=== PATIENT | male | born 1970 | race Caucasian/White ===

== ENCOUNTER 2022-12-24 21:37 | Emergency (ER) | payer MEDICAID ==
[2022-12-24] MEDS ORDERED: HYDROmorphone 0.5 MG/0.5 ML Syringe IVPUSH ONE (21:58)
[2022-12-24] MEDS ORDERED: Sodium Chloride 0.9% 10 ML Syringe FLUSH PRN (21:58)
[2022-12-24] MEDS ORDERED: Ondansetron 4 MG/2 ML SDV IVPUSH ONE (21:58)
[2022-12-24 22:30] LABS: ESTIMATED GFR 90 mL/min (>60)
[2022-12-24 22:32] LABS: CORONAVIRUS COVID-19 NAA NEGATIVE (NEGATIVE)
[2022-12-24] MEDS ORDERED: Sodium Chloride 0.9% 50 ML IV SCH (22:45)
[2022-12-24] MEDS ORDERED: Iopamidol 612 MG/ML 100 ML Bottle IV SCH (22:45)
[2022-12-25 00:08] VITALS: BP 110/70; PULSE 83
== END 2022-12-25 00:05 | disposition home or self-care (01) ==
LOC: JP.ED 21:37
DX: A08.4 Viral intestinal infection, unspecified (principal); J45.909 Unspecified asthma, uncomplicated; Z88.8 Allergy status to other drugs, medicaments and biological substances; Z86.16 Personal history of COVID-19; Z87.891 Personal history of nicotine dependence; Z20.822 Contact with and (suspected) exposure to COVID-19
CPT/HCPCS: 0241U; 36415; 71046; 74177; 80053; 83605; 83690; 85025; 96374; 96375; 99283; 99284; J1170; J2405; J3490; Q9967

== ENCOUNTER 2024-03-19 15:22 | Emergency (ER) | payer MEDICAID ==
[2024-03-19 17:02] LABS: BASOPHILS ABSOLUTE AUTO 0.03 K/uL (0.00-0.10); BASOPHILS PERCENT AUTO 0.4 % (0.1-1.3); EOSINOPHILS ABSOLUTE AUTO 0.06 K/uL (0.00-0.40); EOSINOPHILS PERCENT AUTO 0.9 % (0.0-5.4); HEMATOCRIT 45.1 % (38.4-49.7); HEMOGLOBIN 15.7 g/dL (12.9-16.9); IMMATURE GRAN ABSOLUTE AUTO 0.03 K/uL (0.00-0.23); IMMATURE GRAN PERCENT AUTO 0.4 % (0.0-0.7); LYMPHOCYTES PERCENT AUTO 34.1 % (11.4-47.7); MEAN CORPUSCULAR HEMOGLOBIN 29.2 pg (31.6-35.5); MEAN CORPUSCULAR HGB CONC 34.8 g/dL (31.6-35.5); MEAN CORPUSCULAR VOLUME 83.8 fL (81.4-99.0); MONOCYTES ABSOLUTE AUTO 0.61 K/uL (0.20-0.90); MONOCYTES PERCENT AUTO 9.1 % (3.3-12.6); NEUTROPHILS ABSOLUTE AUTO 3.71 K/uL (1.0-7.6); NEUTROPHILS PERCENT AUTO 55.1 % (40.0-78.1); PLATELET COUNT,PLT 294 K/uL (130-375); RED BLOOD CELL COUNT 5.38 M/uL (4.14-5.76); WHITE BLOOD CELL COUNT,WBC 6.7 K/uL (3.2-11.0)
[2024-03-19 17:16] VITALS: BP 136/89; PULSE 86
[2024-03-19 17:29] LABS: A/G RATIO 0.9 (1.2-2.2); ALANINE AMINOTRANSFERASE,ALT 36 U/L (12-78); ALBUMIN 3.5 g/dL (3.4-5.0); ALKALINE PHOSPHATASE 71 U/L (46-116); ASPARTATE AMNIOTRANSFERASE,AST 21 U/L (15-37); BILIRUBIN TOTAL 0.2 mg/dL (0.2-1.0); BLOOD UREA NITROGEN,BUN 18 mg/dL (7-18); CALCIUM 9.2 mg/dL (8.5-10.1); CARBON DIOXIDE,CO2 24 mmol/L (21-32); CHLORIDE,CL 102 mmol/L (100-108); CREATININE 0.9 mg/dL (0.8-1.3); EST CRCL DRUG DOSING (CG) 107.82 mL/min; ESTIMATED GFR 101 mL/min (>60); GLUCOSE RANDOM 105 mg/dL (74-106); PROTEIN TOTAL,TP 7.6 g/dL (6.4-8.2); SODIUM,NA 135 mmol/L (140-148)
[2024-03-19 17:36] LABS: TROPONIN I HIGH SENSITIVITY < 4.0 pg/mL (<=60.3)
== END 2024-03-19 18:44 | disposition home or self-care (01) ==
LOC: JP.ED 15:22
DX: R07.89 Other chest pain (principal); J45.909 Unspecified asthma, uncomplicated; Z88.8 Allergy status to other drugs, medicaments and biological substances; Z79.51 Long term (current) use of inhaled steroids; Z79.899 Other long term (current) drug therapy; Z86.16 Personal history of COVID-19
CPT/HCPCS: 36415; 80053; 84484; 85025; 93005; 93010; 99283; 99285

== ENCOUNTER 2024-04-30 06:39 | Day surgery (SDC) | payer MEDICAID ==
[2024-04-30] MEDS: Lactated Ringers 1,000 ML IV SCH (07:08)
[2024-04-30] MEDS ORDERED: Midazolam 1 MG/ML 2 ML SDV ONE (07:23)
[2024-04-30] MEDS ORDERED: fentaNYL 50 MCG/ML SDV ONE (07:23)
[2024-04-30] MEDS ORDERED: Propofol 200 MG/20 ML SDV ONE (07:23)
[2024-04-30 08:32] VITALS: BP 143/90; PULSE 74
== END 2024-04-30 08:52 | disposition home or self-care (01) ==
LOC: JP.SDS 06:39
PROVIDERS: ATTEND Family Medicine
DX: Z12.11 Encounter for screening for malignant neoplasm of colon (principal); K63.5 Polyp of colon; J45.909 Unspecified asthma, uncomplicated; K21.9 Gastro-esophageal reflux disease without esophagitis
CPT/HCPCS: 00811; 45380; 88305; J2250; J2704; J3010; J7120

== ENCOUNTER 2024-12-07 12:59 | Emergency (ER) | payer OTHER ==
[2024-12-07 13:56] LABS: BASOPHILS ABSOLUTE AUTO 0.03 K/uL (0.00-0.10); BASOPHILS PERCENT AUTO 0.5 % (0.1-1.3); EOSINOPHILS ABSOLUTE AUTO 0.03 K/uL (0.00-0.40); EOSINOPHILS PERCENT AUTO 0.5 % (0.0-5.4); HEMATOCRIT 45.4 % (38.4-49.7); HEMOGLOBIN 15.2 g/dL (12.9-16.9); IMMATURE GRAN ABSOLUTE AUTO 0.02 K/uL (0.00-0.23); IMMATURE GRAN PERCENT AUTO 0.3 % (0.0-0.7); LYMPHOCYTES ABSOLUTE AUTO 2.08 K/uL (0.8-3.3); LYMPHOCYTES PERCENT AUTO 31.5 % (11.4-47.7); MEAN CORPUSCULAR HEMOGLOBIN 29.1 pg (31.6-35.5); MEAN CORPUSCULAR HGB CONC 33.5 g/dL (31.6-35.5); MEAN CORPUSCULAR VOLUME 86.8 fL (81.4-99.0); MONOCYTES ABSOLUTE AUTO 1.02 K/uL (0.20-0.90); MONOCYTES PERCENT AUTO 15.5 % (3.3-12.6); NEUTROPHILS ABSOLUTE AUTO 3.42 K/uL (1.0-7.6); NEUTROPHILS PERCENT AUTO 51.7 % (40.0-78.1); PLATELET COUNT,PLT 303 K/uL (130-375); RED BLOOD CELL COUNT 5.23 M/uL (4.14-5.76); WHITE BLOOD CELL COUNT,WBC 6.6 K/uL (3.2-11.0)
[2024-12-07 14:17] LABS: ALANINE AMINOTRANSFERASE,ALT 38 U/L (12-78); ALBUMIN 3.7 g/dL (3.4-5.0); ALKALINE PHOSPHATASE 83 U/L (46-116); ANION GAP 13.3 mmol/L (5.0-14.0); ASPARTATE AMNIOTRANSFERASE,AST 18 U/L (15-37); BILIRUBIN TOTAL 0.4 mg/dL (0.2-1.0); BLOOD UREA NITROGEN,BUN 15 mg/dL (7-18); CALCIUM 9.4 mg/dL (8.5-10.1); CARBON DIOXIDE,CO2 26 mmol/L (21-32); CHLORIDE,CL 103 mmol/L (100-108); CREATININE 0.9 mg/dL (0.8-1.3); EST CRCL DRUG DOSING (CG) 101.79 mL/min; ESTIMATED GFR 101 mL/min (>60); GLUCOSE RANDOM 110 mg/dL (74-106); POTASSIUM,K 4.3 mmol/L (3.6-5.2); PROTEIN TOTAL,TP 7.4 g/dL (6.4-8.2); SODIUM,NA 138 mmol/L (140-148)
[2024-12-07] MEDS: Sodium Chloride 0.9% 1,000 ML IV ONE (14:24)
[2024-12-07] MEDS: Iopamidol 612 MG/ML 100 ML Bottle IV PRN (14:55)
[2024-12-07] MEDS: Sodium Chloride 0.9% 80 ML IV SCH (14:55)
[2024-12-07 15:26] VITALS: BP 124/82; PULSE 72
== END 2024-12-07 16:10 | disposition home or self-care (01) ==
LOC: JP.ED 12:59
DX: R19.7 Diarrhea, unspecified (principal); R10.10 Upper abdominal pain, unspecified; J45.909 Unspecified asthma, uncomplicated; Z87.891 Personal history of nicotine dependence; Z88.8 Allergy status to other drugs, medicaments and biological substances; Z79.51 Long term (current) use of inhaled steroids; Z79.899 Other long term (current) drug therapy
CPT/HCPCS: 36415; 74177; 80053; 83690; 85025; 96360; 99284; Q9967; J7030

== ENCOUNTER 2024-12-14 07:22 | Day surgery (SDC) | payer OTHER ==
[2024-12-14] MEDS ORDERED: Midazolam 1 MG/ML 2 ML SDV ONE (08:07)
[2024-12-14] MEDS ORDERED: Propofol 200 MG/20 ML SDV ONE ×2 (08:07→09:00)
[2024-12-14] MEDS ORDERED: fentaNYL 100 MCG/2 ML SDV ONE (08:07)
[2024-12-14] MEDS: Lactated Ringers 1,000 ML IV SCH (08:15)
[2024-12-14 10:26] VITALS: BP 121/85; PULSE 74
== END 2024-12-14 10:30 | disposition home or self-care (01) ==
LOC: JP.SDS 07:22
PROVIDERS: ATTEND Family Medicine
DX: K29.51 Unspecified chronic gastritis with bleeding (principal); K52.9 Noninfective gastroenteritis and colitis, unspecified; K57.31 Diverticulosis of large intestine without perforation or abscess with bleeding; K21.9 Gastro-esophageal reflux disease without esophagitis; J45.909 Unspecified asthma, uncomplicated; Z88.8 Allergy status to other drugs, medicaments and biological substances
CPT/HCPCS: 00813-QZ; 88305; 88341; 88342; 88360; 88364; 88365; J2250; J2704; J3010; J7120